=== PATIENT | male | born 1995 | race Caucasian/White ===

== ENCOUNTER 2021-02-15 00:33 | Emergency (ER) | payer OTHER ==
[~2021-02-15] VITALS: Ht 175.3 cm; Wt 94.9 kg
[2021-02-15 02:12] VITALS: BP 136/87
== END 2021-02-15 02:19 | disposition home or self-care (01) ==
LOC: M ED 00:33
DX: N48.89 Other specified disorders of penis (principal); F17.290 Nicotine dependence, other tobacco product, uncomplicated